=== PATIENT | female | born 1985 | race Caucasian/White ===

== ENCOUNTER → 2020-11-09 17:54 | Outpatient (CLI) | payer OTHER, SELFPAY ==
--- NOTE | 2020-11-09 17:56 | DI.MRI.S_ITS ---
PROCEDURE: MR LUMBAR SPINE WO CON INDICATIONS: LBP with Left L4/5 radic TECHNIQUE: Noncontrast sagittal T1 spin echo and T2 fast echo, sagittal STIR, axial T1 and T2 fast spin echo through the lumbar spine. In cases with scoliosis, additional coronal T2 fast spin echo may be performed. COMPARISON: [facility], RG, XR L-SPINE 2-3V, 07/24/2018, 11:28. FINDINGS: Image quality: Excellent. Alignment and Curvature: There is normal bony alignment. Bone Marrow: Marrow is of normal overall signal. No acute vertebral body compression fractures. Spinal Cord: Conus medullaris terminates at the L1-2 disc level. Visualized cord demonstrates normal signal and size. Paraspinous Soft Tissues: No paravertebral masses. T12-L1: Normal appearance. L1-L2: Normal appearance. L2-L3: Normal appearance. L3-L4: Slight loss of disc signal. Minimal, diffuse disc bulge. No central stenosis. Mild right neural foraminal narrowing. No neural compression. L4-L5: Loss of disc signal. Mild, diffuse disc bulge. Small central disc protrusion. Mild bilateral facet hypertrophy. Mild narrowing of the central canal. Mild bilateral neural foraminal narrowing. No neural compression. Fissure noted in the posterior annulus. L5-S1: Loss of disc signal. Mild, diffuse disc bulge. Small central disc protrusion. Mild bilateral facet hypertrophy. Mild narrowing of the central canal. Mild bilateral neural foraminal narrowing. No neural compression. Fissure noted in the posterior annulus. IMPRESSION: 1. Mild multilevel degenerative disc disease. 2. Mild multilevel facet arthropathy. 3. No severe central canal narrowing. 4. No severe neural foraminal narrowing. 5. No neural compression. 6. L4-L5 and L5-S1 disc annulus fissures. Dictated by: Valentina Garcia MD, PhD on 11/10/2020 at 11:48 Approved by: Valentina Garcia MD, PhD on 11/10/2020 at 11:51
== END ==
PROVIDERS: PCP Family Medicine; Referring Provider Physical Medicine & Rehabilitation; Visit Provider Physical Medicine & Rehabilitation
DX: M54.5 Low back pain (principal); M51.16 Intervertebral disc disorders with radiculopathy, lumbar region; M51.17 Intervertebral disc disorders with radiculopathy, lumbosacral region; M47.26 Other spondylosis with radiculopathy, lumbar region; M47.27 Other spondylosis with radiculopathy, lumbosacral region
CPT/HCPCS: 72148

== ENCOUNTER → 2021-02-09 08:13 | Outpatient (CLI) | payer OTHER, SELFPAY ==
[2021-02-09 15:28] LABS: COVID19 -Nasal RAPID Negative (Negative)
== END ==
PROVIDERS: PCP Family Medicine; Referring Provider Physical Medicine & Rehabilitation; Visit Provider Physical Medicine & Rehabilitation
DX: Z20.822 Contact with and (suspected) exposure to COVID-19 (principal)
CPT/HCPCS: 87635; C9803

== ENCOUNTER 2021-02-11 12:32 | Outpatient (CLI) | payer OTHER, SELFPAY ==
[2021-02-11] VITALS (8 sets, daily range): BP systolic 115–140; BP diastolic 69–95; PULSE 75–91; RESP 10–22; TEMP 36.3; O2SAT 96–100
--- NOTE | 2021-02-11 12:33 | DI.RAD.S_ITS ---
PROCEDURE: PAIN L/S FACET INJ/BLK 1ST BERNY COMPARISON: [facility], MR, MR LUMBAR SPINE WO CON, 11/09/2020, 18:00. INDICATIONS: SPONDYLOSIS FINDINGS: Fluoroscopic spot filming was performed to verify placement of spinal needles on both sides at the L4-L5 and L5-S1 levels, as labeled on the films. Appropriate location of the needle tips was confirmed by injection of iodinated contrast. IMPRESSION: Intraprocedural examination within normal limits. Dictated by: Song Gomez M.D. on 02/11/2021 at 13:46 Approved by: Song Gomez M.D. on 02/11/2021 at 13:46
[2021-02-11] MEDS: MIDAZOLAM 5 MG/5 ML VIAL IV (13:15)
[2021-02-11] MEDS: fentaNYL 100 MCG/2 ML INJ 50 MCG IV (13:15)
[2021-02-11] MEDS: BETAMETHASONE 30 MG/5 ML MDV 12 MG INJ (13:20)
[2021-02-11] MEDS: BUPIVACAINE 0.5% (PF) VIAL 2 ML INJ (13:20)
[2021-02-11] MEDS: IOPAMIDOL 15 ML VIAL 3 ML INJ (13:20)
[2021-02-11] MEDS: LIDOCAINE 1% 20 ML 10 ML INJ (13:20)
--- NOTE | 2021-02-11 13:37 | P.PCN_ITS ---
Date/Time/Diagnoses Date of procedure: 02/11/21 Time of procedure: 13:37 Pre-procedure diagnosis: 1. FACET ARTHROPATHY 2. AXIAL LBP 3. MULTILEVEL DDD Post-procedure diagnosis: same Procedure Notes Procedure: 1. FLUOROSCOPICALLY GUIDED CONTRAST CONTROLLED FACET JOINT INJECTIONS BILATERAL L4/5, L5/S1 Indications: Shraddha is referred by Dr. Dee for treatment of Axial LBP Physician: Billy Summers Total Fluoroscopy time (seconds): 15 Total sedation minutes: 17 Complications: none Procedure in detail & Post-procedure care: FINDINGS Multilevel Facet Arthropathy with Clinically significant axial LBP DESCRIPTION OF PROCEDURE Fluoroscopically guided, contrast-controlled bilateral L4/5, L5/S1 facet joint injections. Following review of allergy and review of potential side effects and complications, including, but not necessarily limited to, infection, allergic reaction, local tissue breakdown, stroke, temporary or permanent nerve injury, paralysis, and possible , the patient indicated that the patient understood and agreed to proceed. An informed consent document was signed by the patient, witnessed by a nurse, and placed in the patient's chart. Additionally, other treatment options including medications, modalities, and physical therapy were reviewed with the patient. After review of previous anaesthesic history and IV conscious sedation the patient was deemed safe to proceed with today?s procedure with IV conscious sedation as ASA class II designation. Safety time-out was performed to confirm patient ID, procedure to be performed and site of procedure. IV sedation was accomplished with a combination of 3mg of Versed and 50mcg of Fentanyl was administered by the RN after DO order, titrated to patient comfort during the course of the procedure while the patient remained responsive to all verbal commands In the prone position, following sterile prep and drape of the lumbar region, the posterior aspect of the L4/5, L5/S1 facet joints were identified fluoroscopically. The skin was anesthetized via a 25-gauge 1.5inch needle with 1% lidocaine solution into the corresponding facet joints. At this point, a 22- gauge 3.5-inch spinal needle was atraumatically introduced and advanced under fluoroscopic guidance into the corresponding facet joints. Following negative aspiration, injections of approximately 0.2cc of Isovue 200 confirmed inter articular placement without vascular uptake. The identical procedure was then performed at the L4/5, L5/S1 facet joints on the left. Radiological data, including multiple fluoroscopic views of the lumbosacral spine, reveal a spinal needle at the L4/5, L5/S1 facet joints bilaterally. Subsequent views show flow of contrast material both superiorly and inferiorly within the joint space without vascular or intrathecal uptake. At this point, a total of 0.5cc including a mixture of 0.25cc Marcaine and 0.25cc betamethasone was injected without complication into each of the corresponding facet joints. The patient tolerated the procedure well without signs or symptoms of complications prior to transfer to the recovery area continued monitoring without incident. The patient was then transferred to the recovery area where they were observed for an appropriate period of time after the injection. The patient reported a VAS score of 7 prior to the procedure and a post- procedure VAS of 0. POST OP INSTRUCTIONS The patient was provided a Pain Log to continue to record their response to the target-specific procedure prior to follow-up visit with their referring physician. Additionally, specific post-injection care instructions and a contact number to our office were provided if concerns arise regarding possible complications associated with the procedure are suspected.
== END 2021-02-11 13:54 | disposition home or self-care (01) ==
PROVIDERS: PCP Family Medicine; Referring Provider Physical Medicine & Rehabilitation; Visit Provider Physical Medicine & Rehabilitation
DX: M47.816 Spondylosis without myelopathy or radiculopathy, lumbar region (principal); M47.817 Spondylosis without myelopathy or radiculopathy, lumbosacral region; M51.36 Other intervertebral disc degeneration, lumbar region; M51.37 Other intervertebral disc degeneration, lumbosacral region; M54.5 Low back pain
CPT/HCPCS: 64493; 64494; 99152; J0702; J2250; J3010

== ENCOUNTER → 2022-09-05 09:28 | Outpatient (CLI) | payer OTHER, SELFPAY ==
--- NOTE | 2022-09-05 | DI.CT.S_ITS ---
PROCEDURE: CT SINUS SCREEN WO CON INDICATIONS: Chronic pansinusitis TECHNIQUE: Noncontrast 3.0 mm axial images acquired from the frontal sinuses to the mid-sella, with coronal and sagittal reformats. For radiation dose reduction, the following was used: automated exposure control, adjustment of mA and/or kV according to patient size. COMPARISON: None. FINDINGS: Image quality: Excellent. Maxillary Sinuses: Mucous retention cysts can be seen within the maxillary sinuses. Ethmoid Air Cells: No bony remodeling or destruction. Sinuses are clear. Sphenoid Sinuses: No bony remodeling or destruction. Sinuses are clear. Frontal Sinuses: No bony remodeling or destruction. Sinuses are clear. Ostiomeatal Complexes: The ostiomeatal complexes are constitutionally narrowed. No simone color cells are seen. Miscellaneous: Visualized intra-orbital contents are normal. 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 Moderate to severe leftward nasal septal deviation is seen. IMPRESSION: No significant active paranasal sinus disease can be seen. Note is made of bilateral maxillary sinus mucous retention cysts. Constitutionally narrowed ostiomeatal complexes noted. 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 Dictated by: Song Gomez M.D. on 09/05/2022 at 10:59 Approved by: Song Gomez M.D. on 09/05/2022 at 11:01
== END ==
PROVIDERS: PCP Nurse Practitioner; Referring Provider Otolaryngology; Visit Provider Otolaryngology
DX: J32.4 Chronic pansinusitis (principal); J34.89 Other specified disorders of nose and nasal sinuses; J34.1 Cyst and mucocele of nose and nasal sinus; J34.2 Deviated nasal septum; J34.3 Hypertrophy of nasal turbinates
CPT/HCPCS: 70486

== ENCOUNTER 2022-10-20 07:59 | Outpatient (CLI) | payer OTHER, SELFPAY ==
[2022-10-20] VITALS (9 sets, daily range): BP systolic 122–151; BP diastolic 65–89; PULSE 73–94; RESP 15–18; TEMP 36.5; O2SAT 98–100
--- NOTE | 2022-10-20 08:00 | DI.RAD.S_ITS ---
PROCEDURE: PAIN L/S FACET INJ/BLK 1ST BERNY COMPARISON: [facility], , PAIN L/S FACET INJ/BLK 1ST BERNY, 02/11/2021, 13:21. INDICATIONS: SPONDYLOSIS FINDINGS: Several spot films are submitted and demonstrate needle placement within the mid and lower lumbar spine. IMPRESSION: Needle placement as above. Dictated by: Jeffery Steven M.D. on 10/20/2022 at 11:53 Transcribed by: DRU on 10/20/2022 at 11:53 Approved by: Jeffery Steven M.D. on 10/20/2022 at 16:07
[2022-10-20] MEDS: MIDAZOLAM 2 MG/2 ML VIAL IV (09:00)
[2022-10-20] MEDS: IOPAMIDOL 15 ML VIAL 3 ML INJ (09:07)
[2022-10-20] MEDS: BUPIVACAINE 0.5% (PF) 10 ML VIAL 5 ML INJ (09:08)
[2022-10-20] MEDS: LIDOCAINE 1% 20 ML INJ (09:08)
--- NOTE | 2022-10-20 09:23 | PM.PROC.IR.1 ---
Date/Time/Diagnoses Date of procedure: 10/20/22 Time of procedure: 09:23 Pre-procedure diagnosis: 1. FACET ARTHROPATHY Post-procedure diagnosis: same Procedure Notes Procedure: 1. BILATERAL- L4, L5 and S1 DIAGNOSTIC MB BLOCKS with LA Anesthetic Indications: Shraddha is referred by JOSE Sneed for treatment of Bilateral Axial LBP. Physician: Billy Summers Total Fluoroscopy time (seconds): 19 Total sedation minutes: 19 Complications: none Procedure in detail & Post-procedure care: DESCRIPTION OF PROCEDURE Fluoroscopically guided, contrast-controlled bilateral L4, L5 and S1 medial branch blocks with 0.5cc of 0.5% Marcaine. Following review of allergy and review of potential side effects and complications, including, but not necessarily limited to, infection, allergic reaction, local tissue breakdown, nerve injury, paralysis, stroke and possible , the patient indicated that the patient understood and agreed to proceed. An informed consent document was signed by the patient, witnessed by a nurse, and placed in the patient's chart. After review of previous anaesthesic history and IV conscious sedation the patient was deemed safe to proceed with today's procedure with IV conscious sedation as ASA class II designation. Safety time-out was performed to confirm patient ID, procedure to be performed and site of procedure. IV sedation was accomplished with a combination of 2mg of Versed was administered by the RN after DO order, titrated to patient comfort during the course of the procedure while the patient remained responsive to all verbal commands In the prone position, following sterile prep and drape of the lumbar region, the right L4, L5 and S1 anatomical location of the medial branch of the dorsal ramus was identified fluoroscopically. Subsequently an anesthetic skin wheal using 1% lidocaine solution was initiated at each of the anatomical spots. Subsequently then a 22-gauge 3.5-inch spinal needle was atraumatically introduced and advanced under fluoroscopic guidance at each of the corresponding sites at the right L4, L5 and S1 MB. After negative aspiration, 0.2cc of Isovue 200 was injected, confirming placement without vascular or intrathecal uptake. Subsequently then 0.5cc of 0.5% Marcaine solution was injected at each of the corresponding sites at the right L4, L5 and S1 medial branch locations. The identical procedure was replicated on the left. The patient tolerated the procedure well without signs or symptoms of complications prior to transfer to the recovery area continued monitoring without incident. Post-procedure, the patient was monitored initiating provocative activities to measure the amount of relief from block of the facetogenic pain. The patient reported a VAS of 7 prior to the procedure and a post-procedure VAS of 1. It has been a pleasure to assist in the diagnostic and therapeutic care of your patient. POST OP INSTRUCTIONS The patient was provided with a Pain Log to complete over the next several hours and subsequent days prior to the patient's follow up with the ordering physician. If the patient has armored service technician relief to the solution applied, then they may be a candidate for medial branch rhizotomy. The patient is aware, was provided, once again, with a Pain Log and will follow up with the referring physician for review and clinical correlation
== END 2022-10-20 09:36 | disposition home or self-care (01) ==
PROVIDERS: PCP Nurse Practitioner; Referring Provider Physical Medicine & Rehabilitation; Visit Provider Physical Medicine & Rehabilitation
DX: M47.816 Spondylosis without myelopathy or radiculopathy, lumbar region (principal); M47.817 Spondylosis without myelopathy or radiculopathy, lumbosacral region
CPT/HCPCS: 64493; 64494; 99152; J2250

== ENCOUNTER 2022-12-29 13:37 | Day surgery (SDC) | payer OTHER, SELFPAY ==
[2022-12-23 13:43] VITALS: BMI 37.0
[2022-12-29] VITALS (11 sets, daily range): BP systolic 111–134; BP diastolic 69–96; PULSE 84–132; RESP 11–18; TEMP 36.2–36.6; O2SAT 90–100; BMI 37.0
[2022-12-29] MEDS: OXYMETAZOLINE NASAL SPRAY 30 ML 2 SPRAYS NASAL ×2 (14:33→16:18)
[2022-12-29] MEDS: LACTATED RINGERS 1,000 ML 42 ML IV (14:33)
--- NOTE | 2022-12-29 15:31 | PM.PREOP ---
Pre-operative Note Interval Note History & Physical reviewed/Exam performed by Physician: Yes Changes to H&P: No
--- NOTE | 2022-12-29 15:32 | PM.HP.1 ---
History of Present Illness History of Present Illness Date Patient Seen: 12/29/22 Time Patient Seen: 15:32 Chief complaint: ENT Narrative: 37-year-old female last seen in clinic 10/17/2022 for multifactorial nasal obstruction presents for septoplasty, turbinate reduction, and right rayray bullosa resection. No interval health changes, wishes to proceed. [facility] Medical History Allergies Rayray bullosa Facet arthropathy, lumbar Headache Herniated nucleus pulposus, L4-5 Nasal obstruction Nasal septal deviation Nasal vestibulitis Respiratory obstruction Scoliosis Surgical History History of bunionectomy (2005) Family History Father Cancer Social History household members: other Smoking Status: Never smoker alcohol intake: current Meds Home Medications and Allergies Home Medications Medication Instructions Recorded Confirmed Type norethindrone (contraceptive) 0.35 0.35 mg PO DAILY 10/19/20 12/29/22 History mg tablet cyclobenzaprine 10 mg tablet 10 mg PO BID PRN muscle spasm #60 08/29/22 12/29/22 Rx tabs fluticasone propionate 50 2 spray intranasal DAILY 08/29/22 12/29/22 History mcg/actuation nasal spray,suspension celecoxib 200 mg capsule (Celebrex) 200 mg PO DAILY #90 caps 12/05/22 12/29/22 Rx tramadol 50 mg tablet 50 mg PO TID PRN pain #30 tabs 12/05/22 12/29/22 Rx Allergies Allergy/AdvReac Type Severity Reaction Status Date / Time fish oil Allergy Severe Anaphylaxis Verified 12/05/22 08:39 shellfish derived Allergy Severe Anaphylaxis Verified 12/05/22 08:39 almond Allergy Intermediate Rash Verified 12/05/22 08:39 Review of Systems Review of Systems Narrative: Negative except as listed in the HPI Exam Vital Signs (past 8 hours): - 12/29/22 14:09 Temperature 97.8 F Pulse Rate 110 H Respiratory Rate 17 Blood Pressure 132/89 Pulse Oximetry 100 Oxygen Delivery Method Room Air Oxygen Delivery Method Room Air Narrative Exam Narrative: Well-developed well-nourished, heart regular rate and rhythm without murmur, lungs clear to auscultation bilaterally Assessment & Plan Assessment & Plan narrative: Assessment: Nasal obstruction, septal deviation, inferior turbinate hypertrophy, right rayray bullosa, respiratory obstruction Plan: Following discussion of the material risks benefits complications and alternatives, the patient elected to proceed.
--- NOTE | 2022-12-29 15:33 | PM.OP.1 ---
Operative Date/Time/Diagnoses Date of procedure: 12/29/22 Time of procedure: 17:18 Pre-op diagnosis: Nasal airway obstruction, septal deviation, inferior turbinate hypertrophy, right rayray bullosa, upper airway obstruction Post-op diagnosis: same Procedure & Clinicians Procedure: 1. Endoscopic right rayray bullosa resection 2. Septoplasty 3. Bilateral inferior turbinate reduction via intramural cautery Same procedure as scheduled: Yes Indications: 37 Year old with the above diagnoses incompletely managed with medical therapy presents for the above procedure. Following discussion of the material risks benefits complications and alternatives, the patient elected to proceed. Surgeon: Jarett Yanez Click Yes if Unassisted: Yes Anesthesia Type: General and Local Operative Notes Findings: 3+ left bony and cartilaginous septal deviation with deep cleft, 3 flap perforations LEFT but RIGHT entirely intact, RIGHT>LEFT inferior turbinate hypertrophy, right rayray bullosa without other mucosal inflammation Estimated Blood Loss (mL): 40 Procedure in detail: Following identification and confirmation of consent as well as preoperative Afrin nasal spray, the patient was brought to the operating room suite and placed in the supine position. General endotracheal anesthesia was administered. I infiltrated the septum widely bilaterally with 2% lidocaine 1 100,000 epinephrine followed by temporary packing with cotton with Afrin and 4% lidocaine. Following sterile prep and drape, the packing was removed and I performed a right conor-transfixion incision, elevated the right mucoperichondrial and mucoperiosteal flap. I disarticulated near the bony/cartilaginous junction and elevated the left mucoperiosteal flap. Deviated portions of the perpendicular plate of the ethmoid and vomer were resected. The residual quadrilateral cartilage was further straightened by trimming it primarily posteriorly as well as reducing the maxillary crest. I left a 2cm caudal strut, 1.5cm dorsal strut. The hemitransfixion incision was closed with interrupted 5 0 chromic followed by a running 4 0 plain gut mattress suture to reapproximate the septal flaps. At case completion, 20/1000th of an inch silastic splints were placed bilaterally, sutured anteriorly with a single 4 0 nylon. The head of each inferior turbinate had been previously infiltrated with additional local anesthetic and a 25 gauge spinal needle was used to impale the length of the turbinate, with cautery on a setting of 15 activated on slow withdrawal over 2 passes. The turbinates were then outfractured. Local anesthetic was infiltrated via spinal needle under endoscopic guidance to the anterior superior and posterior insertion of the right middle turbinate. The lateral portion of the middle turbinate was resected in the area of the rayray bullosa with the microdebrider and forceps, increasing the patency of the middle meatus. Hemostasis was adequate. The procedure complete, sponge and needle counts were correct and the patient was extubated in the operating room and taken to recovery room in stable condition without known complication. Complications: none Post-operative Condition: stable Disposition: same day surgery Plan for aftercare: Nasal saline every hour while awake, begin irrigations t.i.d. tomorrow if tolerated. Polysporin to the nostrils at all times, Tylenol alternating with Advil for pain control, oxycodone for breakthrough pain. Elevate head of bed, no nose blowing, no straining for 2 weeks. Ice directly under the nose on the upper lip has tolerated 24-48 hours at a minimum. Follow-up in 1 week for nasal splint removal.
--- NOTE | 2022-12-29 16:13 | SUR.OPER ---
Supine on padded OR bed, head on gel donut, shoulders and head elevated using wedge, arms secured on padded arm boards at <90 degrees abduction and elevated to shoulder height, legs uncrossed, safety belt at thigh, tape over blanket over lower legs.
[2022-12-29] MEDS: LIDOCAINE 2% W/EPI INJ 20 ML INJ (16:16)
[2022-12-29] MEDS: LIDOCAINE 4% SOLN 50 ML 20 ML TOP (16:17)
[2022-12-29] MEDS: BACITRACIN OINT 0.9 GM PCKT 1 APPLIC TOP (16:39)
[2022-12-29] MEDS: OXYCODONE IR 5 MG TABLET PO (18:02)
== END 2022-12-29 18:42 | disposition home or self-care (01) ==
PROVIDERS: PCP Nurse Practitioner; Referring Provider Otolaryngology; Visit Provider Otolaryngology
PROC: (CPT 30520; principal; 2022-12-29 14:45)
PROC: (CPT 31231; 2022-12-29 14:45)
DX: J34.89 Other specified disorders of nose and nasal sinuses (principal); J34.2 Deviated nasal septum; J34.3 Hypertrophy of nasal turbinates; R23.8 Other skin changes
CPT/HCPCS: 30520; 31240; 30130; J2250; J2405; J2704; J3010

== ENCOUNTER 2023-01-12 10:35 | Outpatient (CLI) | payer OTHER, SELFPAY ==
[2023-01-12] VITALS (13 sets, daily range): BP systolic 115–151; BP diastolic 71–83; PULSE 40–98; RESP 11–21; TEMP 36.3; O2SAT 100
--- NOTE | 2023-01-12 10:36 | DI.RAD.S_ITS ---
PROCEDURE: PAIN L/S MED/LAT N RFA BILAT INDICATIONS: FACET ARTHROPATHY COMPARISON: [facility], XA, PAIN L/S FACET INJ/BLK 1ST BERNY, 10/20/2022, 9:04. FINDINGS: Fluoroscopic spot filming was performed to verify placement of spinal needles on both sides at the L4, L5, and S1 levels, as labeled on the films. IMPRESSION: Images during rhizotomy within normal limits. Dictated by: Song Gomez M.D. on 01/12/2023 at 12:38 Approved by: Song Gomez M.D. on 01/12/2023 at 12:38
[2023-01-12] MEDS: MIDAZOLAM 2 MG/2 ML VIAL 6 MG IV (12:38)
[2023-01-12] MEDS: LIDOCAINE 1% 20 ML 5 ML INJ (12:40)
[2023-01-12] MEDS: BUPIVACAINE 0.5% (PF) 10 ML VIAL 5 ML INJ (12:42)
--- NOTE | 2023-01-12 13:04 | P.PCN_ITS ---
Date/Time/Diagnoses Date of procedure: 01/12/23 Time of procedure: 13:04 Pre-procedure diagnosis: 1. RECALCITRANT FACET ARTHROPATHY Post-procedure diagnosis: same Procedure Notes Procedure: 1. BILATERAL L4 AND L5 MEDIAL BRANCH RADIOFREQUENCY NEUROTOMY AND S1 DORSAL RAMUS BRANCH RADIOFREQUENCY NEUROTOMY Indications: Shraddha is referred by JOSE Sneed for treatment of facet arthropathy. Physician: Billy Summers Total Fluoroscopy time (seconds): 30 Total sedation minutes: 46 Complications: none Procedure in detail & Post-procedure care: DESCRIPTION OF PROCEDURE Bilateral L4 and L5 medial branch radiofrequency neurotomy and bilateral S1 dorsal ramus radiofrequency neurotomy under fluoroscopy with conscious sedation. The patient is well known to this clinic having undergone previous facet injections with good but temporary relief. The patient has experienced appropriate, concordant relief with previous facet and median branch blocks but the patient's pain has been recalcitrant to further conservative measures. Therefore, based upon the patient's relief and persistent symptoms, the patient is considered an appropriate candidate for facet rhizotomy. All of the patient's questions regarding the risks versus benefits of the procedure, including, but not limited to, bleeding, infection, temporary as well as lasting nerve injury, paralysis, stroke, and , as well treatment alternatives were answered to satisfaction. After obtaining informed consent, denial of pertinent drug allergies, as well as being made aware of the potential risks of bleeding, infection, spinal cord trauma, paralysis, temporary and permanent nerve damage, seizure, stroke, and possible , the patient was brought to the fluoroscopy suite and positioned prone on the fluoroscopy table. The lumbar region was prepped with chlorhexadine and covered with a fenestrated drape in the usual sterile fashion. Appropriate monitors applied including pulse oximeter, pulse, and blood pressure for regular monitoring throughout the procedure. After review of previous anaesthesic history and IV conscious sedation the patient was deemed safe to proceed with today's procedure with IV conscious sedation as ASA class II designation. Safety time-out was performed to confirm patient ID, procedure to be performed and site of procedure. IV sedation was accomplished with a combination of 6mg of Versed administered by the RN after DO order, titrated to patient comfort during the course of the procedure while the patient remained responsive to all verbal commands. After local infiltration using 1% lidocaine, under fluoroscopic guidance, a 10- cm RF insulated needle with a 10-mm active tip was positioned parallel to the junction of the right sacral ala and the superior articulating process where the S1 dorsal ramus resides. Needle placement was confirmed with motor stimulation of .5v on the right which produced local stimulation without radicular component. The stimulation was then increased to 2v with, once again, only local multifidus stimulation without radicular component. The needle was then removed and the identical procedure was performed along the length of the right L5 medial branch with motor stimulation at .7v on the right. The identical procedure was once again performed along the length of the right L4 medial branch with motor stimulation of .5v on the right. The medial branches were then anesthetised with 0.5% Marcaine. This was then followed by two discreet lesions performed at 80 degrees Celsius for 90 seconds each. The identical procedure was repeated on the left. The patient tolerated the procedure well without signs or symptoms of complications prior to transfer to the recovery area continued monitoring without incident. The patient was then transferred to the recovery area where they were observed for an appropriate period of time after the injection. The patient reported a VAS score of 8 prior to the procedure and a post-procedure VAS of 2. POST OP INSTRUCTIONS The patient was provided a Pain Log to continue to record the patient's response to the target-specific procedure prior to the patient's follow-up visit with the referring physician. Additionally, specific post-injection care instructions and a contact number to our office were provided if concerns arise regarding possible complications associated with the procedure are suspected.
== END 2023-01-12 13:19 | disposition home or self-care (01) ==
PROVIDERS: PCP Nurse Practitioner; Referring Provider Physical Medicine & Rehabilitation; Visit Provider Physical Medicine & Rehabilitation
DX: M47.816 Spondylosis without myelopathy or radiculopathy, lumbar region (principal); M47.817 Spondylosis without myelopathy or radiculopathy, lumbosacral region
CPT/HCPCS: 64635; 64636; 99152; 99153; J2250